=== PATIENT | male | born 1975 | race Two or more races ===

== ENCOUNTER 2016-04-01 18:49 | Emergency (ER) | payer OTHER ==
[2016-04-01 21:01] LABS: URINE APPEARANCE CLOUDY; URINE BILIRUBIN NEGATIVE (NEGATIVE); URINE BLOOD NEGATIVE (NEGATIVE); URINE COLOR DARK YELLOW; URINE GLUCOSE (UA) NEGATIVE (NEGATIVE); URINE LEUKOCYTE ESTERASE NEGATIVE (NEGATIVE); URINE NITRITE NEGATIVE (NEGATIVE); URINE PROTEIN NEGATIVE (NEGATIVE); URINE UROBILINOGEN NORMAL (0-1 mg/dl)
[2016-04-01] MEDS ORDERED: ONDANSETRON 4 MG ODT TAB ONE (21:05)
[2016-04-01] MEDS ORDERED: PANTOPRAZOLE 40 MG TABLET DR PO ONE (21:05)
[2016-04-01 21:08] LABS: URINE BACTERIA FEW; URINE EPITHELIAL CELLS 0 /hpf; URINE RBC 0-3 /hpf; URINE WBC NEG /hpf
== END 2016-04-01 21:26 | disposition home or self-care (01) ==
LOC: ED 18:49
DX: R10.13 Epigastric pain (principal); R19.7 Diarrhea, unspecified
CPT/HCPCS: 87045; 87046 ×2; 87427; 87205; 81001; 99283 ×2; A9270 ×2